=== PATIENT | male | born 1955 | race Caucasian/White ===

== ENCOUNTER → 2017-01-25 | Outpatient (CLI) | payer OTHER ==
--- NOTE | 2017-01-25 14:59 | REP ---
LUMBAR SPINE, SIX VIEWS: HISTORY: Spondylosis. There is no acute fracture or subluxation. The L2-3 and L3-4 intervertebral discs are decreased in height consistent with disc degeneration. Osteophytes are present on L1 through L5. There is narrowing of the L4-5 and L5-S1 facet joints. IMPRESSION: Degenerative change as described above. Signed by Piero Jarvis MD 01/25/2017 03:00 P
== END ==
LOC: M RAD 12:55
PROVIDERS: ATTEND Neurological Surgery
DX: M51.36 Other intervertebral disc degeneration, lumbar region (principal); M25.78 Osteophyte, vertebrae; M47.897 Other spondylosis, lumbosacral region; M47.896 Other spondylosis, lumbar region

== ENCOUNTER → 2017-03-07 | Outpatient (CLI) | payer OTHER ==
[~2017-03-07] MED LIST: ALLO100T PO; LIDOCAINE 1% SDV INJ 30 ML VIAL As Ordered ONE; MELO7.5T6 PO; MIDAZOLAM INJ 2 MG/2 ML VIAL (J2250) As Ordered ONE; PRAV40TA2 PO; fentaNYL 100 MCG/2 ML INJECTION (J3010) As Ordered ONE
[2017-03-07 16:39] LABS: GLUCOSE CSF 69 MG/DL (40-75)
[2017-03-07 17:34] LABS: RBC CSF AUTO 0 /mm3 (0-0); WBC CSF AUTO 2 /mm3 (0-10)
[2017-03-07 17:35] LABS: APPEARANCE, CSF CLEAR (CLEAR); COLOR, CSF COLORLESS (COLORLESS); CSF TUBE# CELL CNT TUBE 3
[2017-03-07 17:36] LABS: CSF DIFF IF INDICATED? NO (NO)
[2017-03-07 19:46] LABS: CSF DILUENT LOT # 6165
[2017-03-08 11:16] LABS: CSF GROUP B STREP NEGATIVE (NEGATIVE); CSF H. INFLUENZA NEGATIVE (NEGATIVE); CSF N MENINGITIDIS ACYW135 NEGATIVE (NEGATIVE); CSF STREP PNUEMO NEGATIVE (NEGATIVE)
--- NOTE | 2017-03-13 23:29 | ECWPNPC ---
PATIENT NAME: ARAVIND BURTON : 1955 GENDER: MALE VISIT DATE: 03/07/2017 DISCHARGE DATE: 03/07/171653 VISIT LOCKED DATE TIME: PHYSICIAN: MARCELA AGUIRRE RESOURCE: MARCELA AGUIRRE REASON FOR APPOINTMENT 1. SPINAL TAP CURRENT MEDICATIONS NONE ASSESSMENTS PSEUDOTUMOR CEREBRI. PROCEDURES SPINAL TAP WITH IV SEDATION - PLEASE SEE MEDITECH. PROCEDURE CODES 50018 MOD SED SAME PHYS/QHP 5/>YRS DISPOSITION & COMMUNICATION FOLLOW UP F/UP WITH NEUROLOGIST/CALL NEEDED ELECTRONICALLY SIGNED BY MARCELA AGUIRRE MD ON 03/13/2017 AT 10:44 AM EDT DISCLAIMER : THIS IS A VISIT SUMMARY EXTRACTED FROM THE [employer] CHART. IT IS NOT A COPY OF THE [employer] PROGRESS NOTE. MTDD
== END ==
LOC: M PAIN 11:00
PROVIDERS: ATTEND Anesthesiology
DX: G93.9 Disorder of brain, unspecified (principal); H47.10 Unspecified papilledema

== ENCOUNTER → 2017-06-12 | Outpatient (CLI) | payer OTHER ==
[~2017-06-12] MED LIST changes: +ACET500C4 PO; -LIDOCAINE 1% SDV INJ 30 ML VIAL As Ordered ONE; -MELO7.5T6 PO; +MELO7.5T7 PO; -MIDAZOLAM INJ 2 MG/2 ML VIAL (J2250) As Ordered ONE; -fentaNYL 100 MCG/2 ML INJECTION (J3010) As Ordered ONE
--- NOTE | 2017-06-12 15:04 | REP ---
INGUINAL ULTRASOUND: Real-time sonographic evaluation of inguinal regions performed at rest and with Valsalva maneuver to evaluate for possible inguinal hernia. No right inguinal hernia is seen. There is a small left inguinal hernia seen with Valsalva maneuver, containing peritoneal fat but no bowel. The hernia spontaneously reduces following Valsalva maneuver. IMPRESSION: Small left inguinal hernia with Valsalva maneuver containing fat, which spontaneously reduces. Signed by To Sinclair MD 06/12/2017 04:08 P
== END ==
LOC: M RAD 14:17
PROVIDERS: ATTEND Surgery
DX: K40.90 Unilateral inguinal hernia, without obstruction or gangrene, not specified as recurrent (principal)

== ENCOUNTER → 2017-06-19 | Outpatient (CLI) | payer OTHER ==
[~2017-06-19] VITALS: Ht 170.2 cm; Wt 81.6 kg
[~2017-06-19] MED LIST changes: +LIDOCAINE 2% INJ 100 MG/5 ML SDV (FOR ANES.) As Ordered ONE; +NS 1,000 ML IV ONE; +PROPOFOL 200 MG/20 ML VIAL As Ordered ONE
--- NOTE | 2017-06-19 08:58 | ROOR ---
Patient Name: Yonis Herron Procedure Date: 06/19/2017 8:28 AM Date of : 1955 Age: 62 Room: [facility] Gender: Male Note Status: Finalized Procedure: Colonoscopy Indications: Screening for colorectal malignant neoplasm Providers: DO Ruiz Brumfield MD: MACI MENENDEZ MD Requesting Provider: Medicines: Propofol per Anesthesia Complications: No immediate complications. Procedure: Pre-Anesthesia Assessment: - Prior to the procedure, a History and Physical was performed, and patient medications and allergies were reviewed. The patient is competent. The risks and benefits of the procedure and the sedation options and risks were discussed with the patient. All questions were answered and informed consent was obtained. Patient identification and proposed procedure were verified by the physician, the nurse, the anesthesiologist and the coding technician in the endoscopy suite. Mental Status Examination: alert and oriented. Airway Examination: normal oropharyngeal airway and neck mobility. Respiratory Examination: clear to auscultation. CV Examination: normal. Prophylactic Antibiotics: The patient does not require prophylactic antibiotics. Prior Anticoagulants: The patient has taken no previous anticoagulant or antiplatelet agents. ASA Grade Assessment: II - A patient with mild systemic disease. After reviewing the risks and benefits, the patient was deemed in satisfactory condition to undergo the procedure. The anesthesia plan was to use monitored anesthesia care (MAC). Immediately prior to administration of medications, the patient was re-assessed for adequacy to receive sedatives. The heart rate, respiratory rate, oxygen saturations, blood pressure, adequacy of pulmonary ventilation, and response to care were monitored throughout the procedure. The physical status of the patient was re-assessed after the procedure. The Colonoscope was introduced through the anus and advanced to the cecum, identified by appendiceal orifice and ileocecal valve. The colonoscopy was performed without difficulty. The patient tolerated the procedure well. Findings: The perianal exam findings include non-thrombosed external hemorrhoids, non-thrombosed internal hemorrhoids and internal hemorrhoids that prolapse with straining, but spontaneously regress to the resting position (Grade II). Multiple small and large-mouthed diverticula were found in the entire colon. Two carpet-like polyps were found in the proximal descending colon and distal transverse colon. The polyps were 4 to 10 mm in size. These polyps were removed with a jumbo cold forceps. Resection and retrieval were complete. Estimated blood loss was minimal. The exam was otherwise without abnormality on direct and retroflexion views. Impression: - Non-thrombosed external hemorrhoids, non-thrombosed internal hemorrhoids and internal hemorrhoids that prolapse with straining, but spontaneously regress to the resting position (Grade II) found on perianal exam. - Diverticulosis in the entire examined colon. - Two 4 to 10 mm polyps in the proximal descending colon and in the distal transverse colon, removed with a jumbo cold forceps. Resected and retrieved. - The examination was otherwise normal on direct and retroflexion views. Recommendation: - Patient has a contact number available for emergencies. The signs and symptoms of potential delayed complications were discussed with the patient. Return to normal activities tomorrow. Written discharge instructions were provided to the patient. - Repeat colonoscopy in 5-10 years for surveillance based on pathology results. - Return to my office PRN. - Telephone my office for pathology results in 1 week. To Merino DO 06/19/2017 8:57:17 AM This report has been signed electronically. Number of Addenda: 0 Note Initiated On: 06/19/2017 8:28 AM Estimated Blood Loss: Estimated blood loss was minimal.
[2017-06-19 09:17] VITALS: BP 131/85
== END | disposition home or self-care (01) ==
LOC: M OPP 07:23
PROVIDERS: ATTEND Surgery
DX: Z12.11 Encounter for screening for malignant neoplasm of colon (principal); D12.3 Benign neoplasm of transverse colon; D12.4 Benign neoplasm of descending colon; K64.1 Second degree hemorrhoids; K64.4 Residual hemorrhoidal skin tags; K64.8 Other hemorrhoids; K57.30 Diverticulosis of large intestine without perforation or abscess without bleeding; R00.8 Other abnormalities of heart beat; I10 Essential (primary) hypertension; E78.5 Hyperlipidemia, unspecified; M10.9 Gout, unspecified; I63.9 Cerebral infarction, unspecified; F17.210 Nicotine dependence, cigarettes, uncomplicated; Z88.0 Allergy status to penicillin; Z91.018 Allergy to other foods; Z79.899 Other long term (current) drug therapy

== ENCOUNTER → 2017-08-19 | Outpatient (REF) | payer OTHER ==
[~2017-08-19] MED LIST changes: -LIDOCAINE 2% INJ 100 MG/5 ML SDV (FOR ANES.) As Ordered ONE; -NS 1,000 ML IV ONE; -PROPOFOL 200 MG/20 ML VIAL As Ordered ONE
[2017-08-27 10:22] LABS: FACTOR VIII ACTIVITY 108 % (57-163); PROTEIN C ANTIGEN 69 % (60-150); PROTEIN S ANTIGEN FREE 79 % (57-157); PROTEIN S ANTIGEN TOTAL 77 % (60-150)
== END ==
LOC: M LAB REF 16:20
PROVIDERS: ATTEND Internal Medicine Medical Oncology
DX: D47.3 Essential (hemorrhagic) thrombocythemia (principal)

== ENCOUNTER → 2017-09-03 | Outpatient (REF) | payer OTHER ==
[2017-09-03 15:43] LABS: FOLATE 12.5 NG/ML
== END ==
LOC: M LAB REF 12:40
PROVIDERS: ATTEND Internal Medicine Medical Oncology
DX: D45 Polycythemia vera (principal)

== ENCOUNTER → 2020-08-17 | Outpatient (CLI) | payer OTHER ==
[~2020-08-17] MED LIST changes: +ALOG25TA; +ALPR0.5T3; +ATOR40TA75; +FAMO40TA3; +METF10004; +XARE20TA
== END ==
LOC: M LABSMTC 13:26
PROVIDERS: ATTEND Anesthesiology
DX: Z01.812 Encounter for preprocedural laboratory examination (principal); Z20.828 Contact with and (suspected) exposure to other viral communicable diseases
CPT/HCPCS: C9803; U0003

== ENCOUNTER 2020-08-22 09:12 | Day surgery (SDC) | payer OTHER ==
[~2020-08-22] VITALS: Ht 170.2 cm; Wt 92.5 kg
[~2020-08-22 09:12] MED LIST changes: +NS 1,000 ML IV ONE
[2020-08-22] MEDS ORDERED: LIDOCAINE 2% 100MG/5ML SDV (FOR ANES.) As Ordered ONE (09:20)
[2020-08-22] MEDS ORDERED: propofoL 200 MG/20 ML VIAL As Ordered ONE ×2 (09:20→10:54)
[2020-08-22] MEDS ORDERED: fentaNYL 100 MCG/2 ML INJECTION (J3010) As Ordered ONE (10:29)
--- NOTE | 2020-08-22 11:32 | ROOR ---
Patient Name: Yonis Herron Procedure Date: 08/22/2020 10:27 AM Date of : 1955 Age: 65 Room: [facility] Gender: Male Note Status: Finalized Procedure: Upper GI endoscopy Indications: Dysphagia, Suspected gastro-esophageal reflux disease Providers: Tyler Donnelly MD Referring MD: MACI MENENDEZ MD Requesting Provider: Medicines: Monitored Anesthesia Care Complications: No immediate complications. Procedure: Pre-Anesthesia Assessment: - Prior to the procedure, a History and Physical was performed, and patient medications and allergies were reviewed. The patient is competent. The risks and benefits of the procedure and the sedation options and risks were discussed with the patient. All questions were answered and informed consent was obtained. Patient identification and proposed procedure were verified by the physician, the nurse and the anesthesiologist in the procedure room. Mental Status Examination: alert and oriented. Airway Examination: normal oropharyngeal airway and neck mobility. Respiratory Examination: clear to auscultation. CV Examination: normal. Prophylactic Antibiotics: The patient does not require prophylactic antibiotics. Prior Anticoagulants: The patient has taken no previous anticoagulant or antiplatelet agents. ASA Grade Assessment: II - A patient with mild systemic disease. After reviewing the risks and benefits, the patient was deemed in satisfactory condition to undergo the procedure. The anesthesia plan was to use monitored anesthesia care (MAC). Immediately prior to administration of medications, the patient was re-assessed for adequacy to receive sedatives. The heart rate, respiratory rate, oxygen saturations, blood pressure, adequacy of pulmonary ventilation, and response to care were monitored throughout the procedure. The physical status of the patient was re-assessed after the procedure. The Endoscope was introduced through the mouth, and advanced to the second part of duodenum. The upper GI endoscopy was accomplished without difficulty. The patient tolerated the procedure well. Findings: LA Grade A (one or more mucosal breaks less than 5 mm, not extending between tops of 2 mucosal folds) esophagitis with no bleeding was found in the distal esophagus. Biopsies were taken with a cold forceps for histology. Verification of patient identification for the specimen was done by the physician and nurse using the patient's name, date and medical record number. Estimated blood loss was minimal. Scattered mild inflammation characterized by erythema, friability and granularity was found in the gastric antrum. Biopsies were taken with a cold forceps for Helicobacter pylori testing. The duodenal bulb and second portion of the duodenum were normal. Impression: - LA Grade A reflux esophagitis. Biopsied. - Gastritis. Biopsied. - Normal duodenal bulb and second portion of the duodenum. Recommendation: - Patient has a contact number available for emergencies. The signs and symptoms of potential delayed complications were discussed with the patient. Return to normal activities tomorrow. Written discharge instructions were provided to the patient. - High fiber diet. - Continue present medications. - Await pathology results. - Follow an antireflux regimen. - Telephone GI clinic for pathology results in 2 weeks. - Return to primary care physician. Tyler Donnelly MD Tyler Donnelly MD 08/22/2020 11:31:58 AM Electronically signed by Tyler Donnelly MD Number of Addenda: 0 Note Initiated On: 08/22/2020 10:27 AM Estimated Blood Loss: Estimated blood loss was minimal.
[2020-08-22 12:00] VITALS: BP 168/92
--- NOTE | 2020-08-22 12:29 | ROOR ---
Patient Name: Yonis Herron Procedure Date: 08/22/2020 10:28 AM Date of : 1955 Age: 65 Room: [facility] Gender: Male Note Status: Finalized Procedure: Colonoscopy Indications: Hematochezia Providers: Tyler Donnelly MD Referring MD: MACI MENENDEZ MD Requesting Provider: Medicines: Monitored Anesthesia Care Complications: No immediate complications. Procedure: Pre-Anesthesia Assessment: - Prior to the procedure, a History and Physical was performed, and patient medications and allergies were reviewed. The patient is competent. The risks and benefits of the procedure and the sedation options and risks were discussed with the patient. All questions were answered and informed consent was obtained. Patient identification and proposed procedure were verified by the physician, the nurse and the anesthesiologist in the procedure room. Mental Status Examination: alert and oriented. Airway Examination: normal oropharyngeal airway and neck mobility. Respiratory Examination: clear to auscultation. CV Examination: normal. Prophylactic Antibiotics: The patient does not require prophylactic antibiotics. Prior Anticoagulants: The patient has taken no previous anticoagulant or antiplatelet agents. ASA Grade Assessment: II - A patient with mild systemic disease. After reviewing the risks and benefits, the patient was deemed in satisfactory condition to undergo the procedure. The anesthesia plan was to use monitored anesthesia care (MAC). Immediately prior to administration of medications, the patient was re-assessed for adequacy to receive sedatives. The heart rate, respiratory rate, oxygen saturations, blood pressure, adequacy of pulmonary ventilation, and response to care were monitored throughout the procedure. The physical status of the patient was re-assessed after the procedure. The Colonoscope was introduced through the anus and advanced to the terminal ileum, with identification of the appendiceal orifice and IC valve. The colonoscopy was performed without difficulty. The patient tolerated the procedure well. The quality of the bowel preparation was good. The terminal ileum, ileocecal valve, appendiceal orifice, and rectum were photographed. Scope insertion time was 3 minutes. Scope withdrawal time was 12 minutes. The total duration of the procedure was 15 minutes. Findings: The perianal and digital rectal examinations were normal. The terminal ileum appeared normal. Five sessile polyps were found in the recto-sigmoid colon, transverse colon and ascending colon. The polyps were 5 to 15 mm in size. These polyps were removed with a cold snare. Resection and retrieval were complete. To close a defect after polypectomy, one hemostatic clip was successfully placed. There was no bleeding at the end of the procedure. Verification of patient identification for the specimen was done by the physician and nurse using the patient's name, date and medical record number. Estimated blood loss was minimal. The ileocecal valve was moderately lipomatous. Biopsies were taken with a cold forceps for histology. Multiple small and large-mouthed diverticula were found from sigmoid to ascending colon. There was no evidence of diverticular bleeding. Non-bleeding external and internal hemorrhoids were found during retroflexion. The hemorrhoids were medium-sized. Impression: - The examined portion of the ileum was normal. - Five 5 to 15 mm polyps at the recto-sigmoid colon, in the transverse colon and in the ascending colon, removed with a cold snare. Resected and retrieved. Clip was placed. - Lipomatous ileocecal valve. Biopsied. - Moderate diverticulosis from sigmoid to ascending colon. There was no evidence of diverticular bleeding. - Non-bleeding external and internal hemorrhoids. Recommendation: - Patient has a contact number available for emergencies. The signs and symptoms of potential delayed complications were discussed with the patient. Return to normal activities tomorrow. Written discharge instructions were provided to the patient. - High fiber diet. - Continue present medications. - Use fiber, for example Citrucel, Fibercon, Konsyl or Metamucil. - Await pathology results. - Repeat colonoscopy in 3 - 5 years for surveillance of multiple polyps. - Telephone GI clinic for pathology results in 2 weeks. - Return to primary care physician. Tyler Donnelly MD Tyler Donnelly MD 08/22/2020 12:29:06 PM Electronically signed by Tyler Donnelly MD Number of Addenda: 0 Note Initiated On: 08/22/2020 10:28 AM Estimated Blood Loss: Estimated blood loss was minimal.
== END 2020-08-22 12:02 | disposition home or self-care (01) ==
LOC: M OPP 09:12
PROVIDERS: ATTEND Internal Medicine Gastroenterology
DX: K63.5 Polyp of colon (principal); K63.89 Other specified diseases of intestine; K64.8 Other hemorrhoids; K57.30 Diverticulosis of large intestine without perforation or abscess without bleeding; K92.1 Melena; K21.0 Gastro-esophageal reflux disease with esophagitis; K29.70 Gastritis, unspecified, without bleeding; R13.10 Dysphagia, unspecified; E11.9 Type 2 diabetes mellitus without complications; Z79.84 Long term (current) use of oral hypoglycemic drugs; Z79.899 Other long term (current) drug therapy; Z88.0 Allergy status to penicillin; Z91.018 Allergy to other foods; Z91.040 Latex allergy status; Z87.891 Personal history of nicotine dependence
CPT/HCPCS: 43239; 45380; 45385; 88305; J3010